=== PATIENT | female | born 1975 | race Caucasian/White ===

== ENCOUNTER → 2019-09-07 | Outpatient (CLI) | payer OTHER | LOC: RAD 07:52 | DX: Z12.31 Encounter for screening mammogram for malignant neoplasm of breast (principal) ==

== ENCOUNTER → 2020-09-23 | Outpatient (CLI) | payer OTHER | LOC: BC 08:08 | PROVIDERS: ATTEND Family Medicine | DX: Z12.31 Encounter for screening mammogram for malignant neoplasm of breast (principal) ==

== ENCOUNTER → 2021-09-11 | Outpatient (CLI) | payer OTHER | END | disposition home or self-care (01) | LOC: BC 08:37 | PROVIDERS: ATTEND Family Medicine | DX: Z12.31 Encounter for screening mammogram for malignant neoplasm of breast (principal) ==